=== PATIENT | female | born 1995 | race Caucasian/White ===

== ENCOUNTER 2019-09-15 05:48 | Day surgery (SDC) | payer MEDICAID ==
[~2019-09-15] VITALS: Ht 165.1 cm; Wt 93.4 kg
[2019-09-15] MEDS ORDERED: LACTATED RINGERS 1,000 ML IV SCH (06:30)
[2019-09-15 06:47] LABS: UCG SCREEN NEGATIVE
[2019-09-15] MEDS ORDERED: EPINEPHRINE 1:1000 1 MG/ML AMP ONE (07:16)
[2019-09-15] MEDS ORDERED: MORPHINE SULFATE/PF 1MG/ML 10ML AMP ONE ×2 (07:16→09:36)
[2019-09-15] MEDS ORDERED: ROPIVACAINE HCL 10MG/ML 20 ML VIAL EPI ONE (07:37)
[2019-09-15] MEDS ORDERED: BUPIVACAINE/EPINEPH/PF 0.25%/0.0005 10ML ONE (07:42)
[2019-09-15] MEDS ORDERED: ONDANSETRON HCL 4MG/2ML INJ ONE (07:43)
[2019-09-15] MEDS ORDERED: SUCCINYLCHOLINE CHLORIDE 200MG/10ML IV ONE (07:43)
[2019-09-15] MEDS ORDERED: SODIUM CHLORIDE 0.9% 10ML VIAL ONE (07:43)
[2019-09-15] MEDS ORDERED: FENTANYL CITRATE/PF 50MCG/ML 2ML VIAL ONE ×2 (07:43→10:05)
[2019-09-15] MEDS ORDERED: MIDAZOLAM HCL 2 MG/2 ML VIAL ONE (07:43)
[2019-09-15] MEDS ORDERED: DEXAMETHASONE 4MG/ML 1ML VIAL ONE (07:43)
[2019-09-15] MEDS ORDERED: METOCLOPRAMIDE HCL 10MG/2ML VIAL ONE (07:43)
[2019-09-15] MEDS ORDERED: ROCURONIUM BROMIDE 10MG/ML VIAL 5ML IV ONE (07:43)
[2019-09-15] MEDS ORDERED: CEFAZOLIN SODIUM 1000MG/VIAL ONE (07:43)
[2019-09-15] MEDS ORDERED: LIDOCAINE HCL/PF 1% 10 MG/ML 5ML VIAL ONE (07:43)
[2019-09-15] MEDS ORDERED: PROPOFOL 200MG/20ML VIAL IV ONE (07:43)
[2019-09-15] MEDS ORDERED: NEOSTIGMINE METHYLSULFATE 1MG/ML 10 ML VIAL ONE (07:43)
[2019-09-15] MEDS ORDERED: GLYCOPYRROLATE 0.2 MG/ML 2ML VIAL ONE (07:43)
[2019-09-15] MEDS ORDERED: SODIUM CHLORIDE 0.9% 1,000 ML IV ONE (10:29)
[2019-09-15] MEDS ORDERED: HYDROMORPHONE HCL/PF 2MG/ML CPJ IV PRN (10:30)
[2019-09-15] MEDS ORDERED: MORPHINE SULFATE 2 MG/ML CPJ (NOT FOR IM USE) IV PRN (10:30)
[2019-09-15] MEDS ORDERED: ONDANSETRON HCL 4MG/2ML INJ IV PRN (10:30)
[2019-09-15] MEDS ORDERED: MEPERIDINE HCL/PF 25MG/ML CPJ IV PRN ×2 (10:30)
[2019-09-15] MEDS ORDERED: HYDROCODONE/ACETAMINOPHEN 10/325MG TABLET PO PRN (10:45)
[2019-09-15] MEDS ORDERED: ONDANSETRON 4MG ODT PO ONE (15:00)
== END 2019-09-15 15:30 | disposition home or self-care (01) ==
LOC: OR 05:48
PROVIDERS: ATTEND Orthopaedic Surgery
DX: M22.01 Recurrent dislocation of patella, right knee (principal); M22.41 Chondromalacia patellae, right knee; M65.88 Other synovitis and tenosynovitis, other site; Z68.33 Body mass index [BMI] 33.0-33.9, adult; Z79.899 Other long term (current) drug therapy; Z98.890 Other specified postprocedural states; Z82.49 Family history of ischemic heart disease and other diseases of the circulatory system; Z83.3 Family history of diabetes mellitus
CPT/HCPCS: 29873; 64447; 81025; 88304; 88311; 97116; 97161; J0171; J0330; J0690; J1100; J2175; J2250; J2274; J2405; J2704; J2765; J2795; J3010; J3490; Q0162; J2710